=== PATIENT | male | born 1970 | race Caucasian/White ===

== ENCOUNTER 2018-04-10 10:43 | Emergency (ER) | payer BC ==
[2018-04-10 11:43] LABS: #Basophils 0.1 thou/uL (0.0-0.2); #Eosinphils 0.1 thou/uL (0.0-0.7); #Lymphocytes 1.1 thou/uL (1.20-3.40); #Monocytes 0.6 thou/uL (0.11-0.59); #Neutrophils 8.5 thou/uL (1.40-6.50); %Basophils 1.2 % (0.0-1.0); %Eosinophils 0.6 % (0.0-10.0); %Lymphocytes 10.8 % (21.0-51.0); %Neutrophils 81.4 % (42.0-75.0); Hemoglobin 11.2 g/dL (14.0-18.0); Mean Corpuscular HGB CONC 38.7 g/dL (32.0-36.0); Mean Corpuscular Hemoglobin 38.7 pg (27.0-31.0); Mean Platelet Volume 6.5 fL (7.4-10.4); Platelet Count 182 thou/uL (130-400); RBC Distribution Width 11.6 % (11.5-14.5); White Blood Cell (WBC) Count 10.4 thou/uL (4.8-10.8)
[2018-04-10 11:44] LABS: INR-International Normal Ratio 1.8; Prothrombin Time 20.6 SEC (12.0-14.7)
[2018-04-10 11:45] LABS: PTT 41.7 SEC (22.9-36.1)
[2018-04-10] MEDS ORDERED: Furosemide 40 MG/4 ML VIAL ONE (11:54)
[2018-04-10] MEDS ORDERED: Furosemide 40 MG TAB ONE (11:54)
[2018-04-10 12:01] LABS: ALT (SGPT) 24 U/L (8-55); AST (SGOT) 101 U/L (5-34); Albumin 2.3 g/dL (3.5-5.0); Alkaline Phosphatase 107 U/L (40-150); Anion Gap 17 mmol/L (10-20); BUN (Urea Nitrogen) 4 mg/dL (8.9-20.6); Bilirubin, Total 7.8 mg/dL (0.2-1.2); Calc. Creatinine Clearance 0 mL/min (70-130); Calcium 8.1 mg/dL (7.8-10.44); Carbon Dioxide 31 mmol/L (22-29); Estimated GFR-MDRD Greater than 90; Globulin 5.2 g/dL (2.4-3.5); Glucose 117 mg/dL (70-105); Lipase 99 U/L (8-78); Magnesium 1.9 mg/dL (1.6-2.6); Potassium 3.3 mmol/L (3.5-5.1); Protein, Total 7.5 g/dL (6.0-8.3); Sodium 114 mmol/L (136-145)
[2018-04-10 12:04] LABS: Chloride 69 mmol/L (98-107)
== END 2018-04-10 15:36 | disposition short-term general hospital (02) ==
LOC: NAV ERS 10:43
DX: K72.00 Acute and subacute hepatic failure without coma (principal); R60.1 Generalized edema; E87.1 Hypo-osmolality and hyponatremia; Z87.891 Personal history of nicotine dependence
CPT/HCPCS: 80053; 82140; 83690; 83735; 85025; 85610; 85730; 93005; 96374; J1940